=== PATIENT | male | born 1955 | race Caucasian/White ===

== ENCOUNTER 2021-08-25 21:20 | Emergency (ER) | payer OTHER ==
[~2021-08-25] VITALS: Ht 180.3 cm; Wt 111.0 kg
[~2021-08-25 21:20] MED LIST: ASPIR 8181 MG PO; COQ-10100 MG PO; UNK BP MED; VITAMIN B COMP1 EACH PO; ZOFRAN ODT4 MG PO; [UNRECOGNIZED DRUG - REMARK]
[2021-08-25 22:26] LABS: ABSOLUTE NEUTROPHILS 4.7 thou/uL (1.4-8.2); BASOPHILS 0.8 % (0.0-2.0); EOSINOPHILS 2.5 % (0.0-3.0); HEMATOCRIT 38.7 % (42.0-52.0); HEMOGLOBIN 13.1 gm/dL (14.0-18.0); MCH 30.6 pg (26.0-34.0); MCHC 33.8 g/dL (28.0-37.0); MCV 90.5 fL (80.0-100.0); MONOCYTES 7.2 % (1.0-8.0); PLATELET COUNT 212 thou/uL (150-400); POLYS 62.5 % (36.0-66.0); RBC 4.27 mil/uL (4.50-6.00); RDW 13.4 % (10.5-14.5); WBC 7.5 thou/uL (4.0-11.0)
[2021-08-25 22:42] LABS: CALCIUM 8.1 mg/dL (8.5-10.1); POTASSIUM 3.7 mmol/L (3.5-5.1)
[2021-08-25 22:52] LABS: ALBUMIN 3.6 g/dL (3.4-5.0); TOTAL BILIRUBIN 0.7 mg/dL (0.2-1.0); TOTAL PROTEIN 6.7 g/dL (6.4-8.2)
[2021-08-25 23:15] VITALS: BP 137/74
--- NOTE | 2021-08-28 07:35 | EKG ---
[address] [place] [address] ELECTROCARDIOGRAM REPORT Name: GAUTAMALLYSON CHAMBERLAIN Room #: [facility]#: [id number] Admission: 08/25/21 Attend Phys: Discharge: 08/25/21 Date of : 59 Report #: [id number] [facility] ED Test Date: 2021-08-25 Test Time: 21:50:29 Pat Name: ALLYSON FRANKEL Department: Room: Gender: M Pairer: tyree : 1955 Requested By: Irina Herrera Order Number: [id number] MD: Luis Quezada Measurements Intervals [place] Rate: 58 P: 39 NC: 170 QRS: -19 QRSD: 97 T: 31 QT: 426 QTc: 419 Interpretive Statements Sinus rhythm Borderline left axis deviation Low voltage, precordial leads Abnormal R-wave progression, early transition Compared to ECG 08/21/2016 20:37:44 Low QRS voltage now present Sinus tachycardia no longer present ST (T wave) deviation no longer present Electronically Signed On 08-28-2021 7:35:35 DATABASE ANALYST by Lius Quezada [email or web address] <ELECTRONICALLY SIGNED> By: Luis Quezada MD, FACC 08/28/21 0735 49 Luis Quezada MD, [facility] /EPI
== END 2021-08-25 23:15 | disposition home or self-care (01) ==
LOC: ER 21:20
PROVIDERS: Nurse Practitioner
DX: M54.6 Pain in thoracic spine (principal); R06.02 Shortness of breath; Z88.2 Allergy status to sulfonamides